=== PATIENT | female | born 1995 | race Caucasian/White ===

== ENCOUNTER 2021-05-15 09:07 | Emergency (ER) | payer OTHER, SELFPAY ==
[2021-05-15 09:16] VITALS: BP 136/75; PULSE 98; RESP 18; TEMP 36.8; O2SAT 97
--- NOTE | 2021-05-15 09:29 | ED.SKABFB ---
HPI - Skin/Abscess/Foreign Bdy General Chief complaint: Skin/Abscess/Foreign Body Stated complaint: Rash Time Seen by Provider: 05/15/21 09:22 Source: patient and RN notes reviewed Mode of arrival: ambulatory Limitations: no limitations History of Present Illness HPI narrative: Patient presents today complaining of a pruritic rash to the trunk, extremities, and neck that started 2 days ago. She has been using Benadryl and hydrocortisone cream with mild relief. Unsure of the cause. She has not had any changes in her household products. No new food or plant exposures. No one else in her household has similar rash. Denies any shortness of breath or difficulty swallowing. MD complaint: rash Related Data Allergies Allergy/AdvReac Type Severity Reaction Status Date / Time No Known Allergies Allergy Unknown Verified 05/15/21 09:23 Review of Systems Review of Systems: Narrative: CONSTITUTIONAL: Denies body aches, fever, chills, or sweats. EYES: Denies visual changes, redness, or discharge. ENT: Denies rhinorrhea, congestion, sore throat, or otalgia. CARDIOVASCULAR: Denies chest pain, palpitations, or edema. RESPIRATORY: Denies cough or dyspnea. GASTROINTESTINAL: Denies abdominal pain, nausea, vomiting, or diarrhea. GENITOURINARY: Denies dysuria or hematuria. SKIN: Pruritic rash MUSCULOSKELETAL: Denies back pain, joint pain, or myalgia. NEUROLOGIC: Denies headache, numbness, tingling, or weakness. PSYCH: Denies depression or anxiety. PMFSH Family History Family History Other Cerebrovascular accident Diabetes mellitus Family history of arthritis Family history of malignant neoplasm Hypertension Social History Social History Smoking status: Never smoker Second hand tobacco smoke exposure: No Alcohol intake: never Comments At time of signature, I have reviewed and agree with nursing past medical, surgical, social and family history unless otherwise noted. Please see nursing chart for further information. There is no relevant family history pertinent to the presenting complaint Exam Narrative: Exam Narrative: GENERAL: Well-appearing, well-nourished, and in no acute distress. HEAD: Normocephalic, atraumatic. EYES: EOMI. No redness or drainage. Conjunctivae normal. ENT: Mucous membranes pink and moist. Throat normal. NECK: Normal AROM. CHEST: No respiratory distress. Clear to auscultation. HEART: Regular rate and rhythm. No murmur appreciated. Normal peripheral pulses. EXTREMITIES: Normal range of motion. No edema. SKIN: Warm, dry. Capillary refill normal. Normal skin turgor. Fine, small, scattered, urticarial rash to the bilateral extremities, neck, chest, abdomen, and back. NEURO: No focal deficits. Alert and oriented x3. Gait steady. PSYCH: Normal affect. No signs of depression or anxiety. Course Vital Signs Vital signs: Vital Signs Temperature 98.2 F 05/15/21 09:16 Pulse Rate 98 05/15/21 09:16 Respiratory Rate 18 05/15/21 09:16 Blood Pressure 136/75 05/15/21 09:16 Pulse Oximetry 97 05/15/21 09:16 Temperature 98.2 F 05/15/21 09:16 Pulse Rate 98 05/15/21 09:16 Respiratory Rate 18 05/15/21 09:16 Blood Pressure 136/75 05/15/21 09:16 Pulse Oximetry 97 05/15/21 09:16 Reviewed. Pt has been instructed to follow up with her PCP regarding her elevated blood pressure today. MDM - Skin/Abscess/Foreign Bdy Differential Diagnosis Differential diagnosis: Likely abscess of skin or subcutaneous tissue, viral exanthem, urticaria, cellulitis, eczema, insect bites, impetigo and contact dermatitis Critical Care Time Critical Care Time Critical Care Time: No Discharge Plan Discharge Clinical Impression: Urticaria Patient Disposition: Home, Self-Care Condition: Stable Instructions: Urticaria (ED) Additional Instructions: Please take the p
== END 2021-05-15 09:37 | disposition home or self-care (01) ==
PROVIDERS: Emergency Provider Nurse Practitioner; PCP Family Medicine
DX: L50.9 Urticaria, unspecified (principal)
CPT/HCPCS: 99213; G0463

== ENCOUNTER 2023-03-11 10:33 | Emergency (ER) | payer OTHER, SELFPAY ==
[2023-03-11 10:48] VITALS: BP 124/84; PULSE 85; RESP 16; TEMP 36.5; O2SAT 99
--- NOTE | 2023-03-11 11:32 | ED.SKABFB ---
HPI - Skin/Abscess/Foreign Bdy General Chief complaint: Skin/Abscess/Foreign Body Stated complaint: pain near cyst on bikini area Time Seen by Provider: 03/11/23 11:34 Source: patient and RN notes reviewed Mode of arrival: ambulatory Limitations: dementia History of Present Illness HPI narrative: 27-year-old female presents with concern for an abscess near her groin. She reports she has a history of getting these. She reports she noticed it a couple of days ago, it has gotten more painful. She tried to drain it herself but was unable to. She denies any purulent drainage from the area. MD complaint: abscess/boil Related Data Allergies Allergy/AdvReac Type Severity Reaction Status Date / Time No Known Allergies Allergy Unknown Verified 03/11/23 10:48 Review of Systems Review of Systems: CONSTITUTIONAL: Denies malaise, chills, sweats, or fever. EYES: Denies redness, or discharge. ENT: Denies rhinorrhea, congestion, swollen lips, swollen tongue CARDIOVASCULAR: Denies chest pain, palpitations, or edema. RESPIRATORY: Denies cough or dyspnea. GASTROINTESTINAL: Denies abdominal pain, nausea, vomiting SKIN: Reports abscess in her right groin. Denies purulent drainage, vesicles, bullae, numbness, pain beyond proportion MUSCULOSKELETAL: Denies joint pain or myalgia. NEUROLOGIC: Denies headache. All systems reviewed & are unremarkable except as noted in HPI and below PMFSH Family History Family History Other Cerebrovascular accident Diabetes mellitus Family history of arthritis Family history of malignant neoplasm Hypertension Social History Social History Smoking status: Never smoker Second hand tobacco smoke exposure: No Alcohol intake: never Comments At time of signature, agree with nursing past medical, surgical, social and family history. There is no relevant family history pertinent to the presenting complaint Exam Narrative: GENERAL: Well-appearing, well-nourished, and in no acute distress. HEAD: Normocephalic, atraumatic. EYES: PERRLA, conjunctivae clear ENT: Mucous membranes moist. NECK: Supple. No lymphadenopathy CHEST: Clear to auscultation. No respiratory distress. HEART: Regular rate and rhythm. SKIN: Warm, dry. Approximately he 3.5 cm x 0.5 cm raised area of erythema, induration, tenderness, warmth with sharp margins noted right groin with a small area fluctuation. No vesicles, bullae, necrosis, ecchymosis, crepitus noted. NEURO: Alert and oriented x3. PSYCH: Normal mood and affect : Female genitals images: 1. [place] raised area of erythema and edema with a small area of fluctuation Course Course Emergency Course: Patient is aware of diagnosis, understands and agrees to treatment plan. Anticipatory guidance given. Patient agrees to follow-up as directed and is aware of reasons to seek care at the emergency department. Portions of this record may have been created with voice recognition software Level of Care: Express Care Visit Vital Signs Vital signs: Vital Signs Temperature 97.7 F 03/11/23 10:48 Pulse Rate 85 03/11/23 10:48 Respiratory Rate 16 03/11/23 10:48 Blood Pressure 124/84 03/11/23 10:48 Pulse Oximetry 99 03/11/23 10:48 Oxygen Delivery Room Air 03/11/23 10:48 Temperature 97.7 F 03/11/23 10:48 Pulse Rate 85 03/11/23 10:48 Respiratory Rate 16 03/11/23 10:48 Blood Pressure 124/84 03/11/23 10:48 Pulse Oximetry 99 03/11/23 10:48 Oxygen Delivery Room Air 03/11/23 10:48 Reviewed. Procedures Abscess I/D other: Date of Incision: 03/11/23 Time of Incision: 11:55 Side (if applicable): right Local Anesthetic: none (EMLA) Technique: needle aspiration Amount of fluid expressed (mL): 6 Irrigation: No Packing used?: none I&D Results: Pus M
[2023-03-11] MEDS: LIDOCAINE/PRILOCAINE CREAM 2.5-2.5% TUBE 1 EACH TOPICAL (11:44)
--- NOTE | 2023-03-11 11:52 | PC.NURSE ---
I and D set up at bedside.
== END 2023-03-11 12:10 | disposition home or self-care (01) ==
PROVIDERS: Emergency Provider Nurse Practitioner
DX: L02.818 Cutaneous abscess of other sites (principal)
CPT/HCPCS: 10060; 87070; 87205; 99213; G0463

== ENCOUNTER 2023-06-08 10:59 | Emergency (ER) | payer OTHER, SELFPAY ==
--- NOTE | 2023-06-08 11:08 | ED.URI ---
HPI - URI/Sore Throat General Chief Complaint: Upper Respiratory Infection Stated Complaint: cough Source: patient and RN notes reviewed Mode of arrival: ambulatory Limitations: no limitations History of Present Illness HPI Narrative: 27 y/o female presented for c/o cough, sinus congestion, fatigue and body aches for almost one week. Denies sob, wheezing, n/v/d/f/c. Missed work. Endorses dtr is sick with similar symptoms. MD elicited complaint: cough Related Data Home Medications Medication Instructions Recorded Confirmed No Home Medications 06/08/23 06/08/23 Allergies Allergy/AdvReac Type Severity Reaction Status Date / Time No Known Allergies Allergy Unknown Verified 03/11/23 10:48 Review of Systems Review of Systems: CONSTITUTIONAL: Endorses malaise, denies chills, sweats, fever EYES: Denies visual changes, redness, or discharge ENT: Reports rhinorrhea, congestion, denies sinus pain, otalgia, sore throat CARDIOVASCULAR: Denies chest pain, palpitations, edema RESPIRATORY: Reports cough, post nasal drainage. Denies dyspnea GASTROINTESTINAL: Denies abdominal pain, nausea, vomiting, diarrhea SKIN: Denies rash or itching MUSCULOSKELETAL: Endorses myalgia NEUROLOGIC: Denies headache PMFSH Family History Family History Other Cerebrovascular accident Diabetes mellitus Family history of arthritis Family history of malignant neoplasm Hypertension Social History Social History (Updated 06/08/23 @ 11:23 by Nadeen High APRN) Smoking status: Current some day smoker Second hand tobacco smoke exposure: No Alcohol intake: never Exam Narrative: GENERAL: mildly Ill-appearing, nontoxic no acute distress. HEAD: Normocephalic EYES: PERRLA, conjunctivae clear ENT: Mucous membranes moist. TMs pearly frazier with dull light reflex bilaterally; no tragal tenderness. Oropharynx not erythematous without lesions or exudate, no drooling, no hoarseness, no trismus, uvula midline. NECK: Supple. No lymphadenopathy CHEST: Clear to auscultation, breath sounds equal. No wheezing, rhonchi, rales, or stridor. No respiratory distress, speaks in full sentences. HEART: Regular rate and rhythm. No murmur heard. SKIN: Warm, dry, no rash. NEURO: Alert and oriented x3. PSYCH: Normal mood and affect Course Course Emergency Course: Patient is aware of diagnosis, understands and agrees to treatment plan. Anticipatory guidance given. Patient agrees to follow-up as directed and is aware of reasons to seek care at the emergency department. Portions of this record may have been created with voice recognition software Level of Care: Express Care Visit Vital Signs Vital signs: Vital Signs Temperature 98.3 F 06/08/23 11:14 Pulse Rate 103 H 06/08/23 11:14 Respiratory Rate 16 06/08/23 11:14 Blood Pressure 120/85 06/08/23 11:14 Pulse Oximetry 99 06/08/23 11:14 Oxygen Delivery Room Air 06/08/23 11:14 Temperature 98.3 F 06/08/23 11:14 Pulse Rate 103 H 06/08/23 11:14 Respiratory Rate 16 06/08/23 11:14 Blood Pressure 120/85 06/08/23 11:14 Pulse Oximetry 99 06/08/23 11:14 Oxygen Delivery Room Air 06/08/23 11:14 reviewed MDM - URI/Sore Throat MDM Narrative Medical decision making narrative: Results of negative strep and COVID reviewed with patient. Discussed physical exam findings. Advised supportive measures and signs/symptoms to go to the ER. Pt is appropriate for outpt treatment and f/u. Differential Diagnosis Differential diagnosis: Likely upper respiratory infection, sinusitis and viral infection Lab Data Labs: Strep Screen Presumptive Negative *(Reference Range: Negative)* Discharge Plan Discharge Clinical Impression: Upper respiratory infection Patient Disposition: Home, Self-Care Condition: Stable Instructions: Upper Respirator
[2023-06-08 11:14] VITALS: BP 120/85; PULSE 103; RESP 16; TEMP 36.8; O2SAT 99
== END 2023-06-08 12:00 | disposition home or self-care (01) ==
PROVIDERS: Emergency Provider Nurse Practitioner Family; PCP Emergency Medicine
DX: J06.9 Acute upper respiratory infection, unspecified (principal); Z20.822 Contact with and (suspected) exposure to COVID-19; F17.200 Nicotine dependence, unspecified, uncomplicated
CPT/HCPCS: 87081; 87426; 87880; 99213; C9803; G0463